=== PATIENT | female | born 2005 | race Caucasian/White ===

== ENCOUNTER 2025-05-12 09:44 | Outpatient (CLI) | payer OTHER | END 2025-05-12 09:45 | disposition home or self-care (01) | LOC: BICRAD 09:44 | PROVIDERS: ATTEND Family Medicine | DX: Q90.9 Down syndrome, unspecified (principal); E61.1 Iron deficiency; R94.6 Abnormal results of thyroid function studies | CPT/HCPCS: 36415; 72040; 80061; 83036; 84439; 84443; 84481; 85025 ==